=== PATIENT | male | born 1955 | race Caucasian/White ===

== ENCOUNTER 2023-06-10 00:19 | Inpatient (IN) | payer MEDICARE, MEDICAID ==
[2023-06-09 23:50] VITALS: BP 137/56; PULSE 70; TEMP 98.2
[~2023-06-10] VITALS: Ht 177.8 cm; Wt 97.4 kg
[2023-06-10] VITALS (13 sets, daily range): BP systolic 104–135; BP diastolic 52–69; PULSE 70–71; TEMP 97.5–98.2
[~2023-06-10 00:19] MED LIST: CALPHRON667 MG PO; COREG 6.256.25 MG/TA PO; DEMADEX 20MG20 M1 PO; ELIQUIS 5MG PO; KEPPRA750 MG PO; NORCO 325 MG-51 TAB PO; NORVASC 5MG5 MG/TAB PO; PREDNISONE20 MG PO; PROTONIX20 MG PO; ROBAXIN 50500 MG/TAB PO; XIFAXAN550 MG PO; ZYLOPRIM 100MG100 MG PO
[2023-06-10] MEDS ORDERED: PHOS LO PO (00:44)
[2023-06-10] MEDS ORDERED: NORVASC 10MG10 MG PO (00:44)
[2023-06-10] MEDS ORDERED: Albuterol/Ipratropium 3 MG-0.5 MG/3 ML Neb Soln IH PRN (01:45)
[2023-06-10] MEDS ORDERED: Oseltamivir 30 MG CAP PO SCH (02:00)
[2023-06-10] MEDS ORDERED: Albuterol/Ipratropium 3 MG-0.5 MG/3 ML Neb Soln IH SCH (02:00)
--- NOTE | 2023-06-10 02:25 | NUR ---
patient arrived via EMS from [facility] in [place] around 2350, alert and oriented x3 with some forgetfullness. pt denies chest pain and shortness of breath. reports some aching pain rated 7/10 in lower back, repositioned and resting with eyes closed at this time. small open wounds x3 noted on left lower leg/little, top two with bandaids applied, small amount of dried drainage noted from bottom wound, open to air, wound care consult placed. dialysis catheter in right upper cx. IV in LF is patent, site is clean dry and intact. walker from home, weak gait with ambulation. pt home medications placed in ziploc bag with pt ID sticker and in pt med bin, pt report that "med for digestion are actually in the bottle for the carvedilol, not the carvedilol" will pass on to day shift RN to send down to pharmacy. dry mild cough noted. pt unable to recognize/recall home medications, med rec completed to best of ability. pt has no further needs, questions, or concerns at this time. fall precautions in place, call light within reach. will continue to monitor.
[2023-06-10] MEDS ORDERED: Albuterol 90 MCG/PUFF 8 GM MDI IH PRN (04:30)
[2023-06-10 07:07] LABS: C-REACTIVE PROTEIN 9.51 mg/dL (0.00-0.50); MAGNESIUM 2.1 mg/dL (1.6-2.6)
[2023-06-10 07:15] LABS: CALCIUM 7.9 mg/dL (8.4-10.2); CREATININE, serum 7.4 mg/dL (0.72-1.25); POTASSIUM 4.6 mmol/L (3.5-4.5)
[2023-06-10 07:21] LABS: INR 1.3 (0.8-3.0); PROTHROMBIN TIME 14.2 SECONDS (9.7-12.8)
[2023-06-10 07:24] LABS: MEAN CELL VOLUME 89 fl (80.0-100.0); MEAN CORPUSCULAR HGB CONC 34 g/dl (33.0-37.0); MEAN PLATELET VOLUME 11.1 fl (7.4-10.4); PLATELET COUNT 60 K/mm3 (130-400); RED BLOOD COUNT 3.22 M/mm3 (4.20-5.60); REDCELL DISTRIBUTION WIDTH-CV 13.7 % (11.5-14.5)
[2023-06-10 07:30] LABS: HEMATOCRIT 28.8 % (42.0-52.0); HEMOGLOBIN 9.9 g/dl (13.5-18.0); MEAN CORPUSCULAR HEMOGLOBIN 31 pg (27-31)
--- NOTE | 2023-06-10 07:43 | NUR ---
Dr. Cardenas notified of critical lab result.
[2023-06-10] MEDS ORDERED: Calcium Acetate 667 MG TAB/CAP PO SCH (08:00)
[2023-06-10] MEDS ORDERED: Carvedilol 6.25 MG TAB PO SCH (08:00)
[2023-06-10] MEDS ORDERED: Albuterol 90 MCG/PUFF 8 GM MDI IH SCH (08:00)
[2023-06-10 08:12] LABS: LYMPHOCYTE 30 % (20.0-51.0); NEUTROPHILS 64 % (42.0-75.2); PLATELET ESTIMATE DECREASED (NORMAL)
[2023-06-10] MEDS ORDERED: amLODIPine 10 MG TAB PO SCH (09:00)
[2023-06-10] MEDS ORDERED: Apixaban 5 MG TAB PO SCH (09:00)
[2023-06-10] MEDS ORDERED: Allopurinol 100 MG TAB PO SCH (09:00)
[2023-06-10] MEDS ORDERED: Influenza Virus Vaccine, Hi-Dose Quad '23-24 (65 YR+) 0.7 ML SYRINGE IM SCH (09:00)
[2023-06-10] MEDS ORDERED: levETIRAcetam 500 MG TAB PO SCH (09:00)
[2023-06-10] MEDS ORDERED: Torsemide 20 MG TAB PO SCH (09:00)
[2023-06-10] MEDS ORDERED: Umeclidinium/Vilanterol 62.5-25 MCG INHALATION/INHALER IH SCH (09:00)
[2023-06-10] MEDS ORDERED: dexAMETHasone 10 MG/ML VIAL IV SCH (09:00)
[2023-06-10] MEDS ORDERED: Doxycycline Monohydrate 100 MG CAP PO SCH (09:00)
--- NOTE | 2023-06-10 10:23 | NUR ---
Patient awake, alert, forgetful. Denies pain or shortness of breath. States he is tired. Ulcers to lower extremities bilaterally. Open ulceration on L little, others dried and scaly, black. HD catheter in place in R chest, dressing CDI. Bed in lowest position, bed alarm on, call light within reach.
[2023-06-10 11:03] LABS: MEAN CELL VOLUME 90 fl (80.0-100.0); MEAN CORPUSCULAR HGB CONC 33 g/dl (33.0-37.0); MEAN PLATELET VOLUME 11.4 fl (7.4-10.4); PLATELET COUNT 63 K/mm3 (130-400); RED BLOOD COUNT 3.28 M/mm3 (4.20-5.60); REDCELL DISTRIBUTION WIDTH-CV 13.8 % (11.5-14.5)
[2023-06-10 11:12] LABS: HEMATOCRIT 29.6 % (42.0-52.0); HEMOGLOBIN 9.9 g/dl (13.5-18.0); MEAN CORPUSCULAR HEMOGLOBIN 30 pg (27-31)
[2023-06-10] MEDS ORDERED: oxyCODONE 5 MG TAB PO ONE (11:15)
--- NOTE | 2023-06-10 11:43 | NUR ---
Dr. Cardenas notified of critical lab result.
[2023-06-10] MEDS ORDERED: Heparin 1,000 UNITS/ML 10 ML Multi-Dose VIAL IV SCH (12:00)
[2023-06-10] MEDS ORDERED: Heparin 1,000 UNITS/ML 10 ML Multi-Dose VIAL ICA SCH (12:00)
[2023-06-10 12:18] LABS: BAND 10 % (0-10); LYMPHOCYTE 38 % (20.0-51.0); MYELOCYTE 2 % (0-0); NEUTROPHILS 46 % (42.0-75.2); PLATELET ESTIMATE DECREASED (NORMAL)
--- NOTE | 2023-06-10 12:21 | NUR ---
workers compensation claims supervisor attended clinical rounding with the interdisciplinary team. SW was notified patient may need resources on ways to make his medications more affordable. SW will follow up with patient via telephone due to patient testing positive for COVID.
[2023-06-10] MEDS ORDERED: Remdesivir 100 MG in NS 100 ML IV SCH (16:00)
--- NOTE | 2023-06-10 16:30 | NUR ---
Due to COVID protocol, Social Work student Yoana attempted to call patient's room phone, cell phone, and daughter's cell.
--- NOTE | 2023-06-10 18:05 | NUR ---
Patient back to room from dialysis. Denying pain, shortness of breath or nausea. Tolerating dinner well. Bed in lowest position with call light within reach, bed alarm on.
--- NOTE | 2023-06-10 18:11 | NUR ---
Dialysis Note Pt arrived to dialysis via bed Uf goal set for 2.5 and 2.5 removed. Pt tolerated well and dcd back to room.
[2023-06-10] MEDS ORDERED: cefTRIAXone 2 G in Water For Injection,Sterile 20 ML IV SCH (20:00)
[2023-06-10] MEDS ORDERED: oxyCODONE 5 MG TAB PO PRN (21:00)
--- NOTE | 2023-06-10 21:31 | NUR ---
patient lying in bed, alert and oriented x3 with occasional forgetfullness. pt denies chest pain and shortness of breath. reports pain in lower back rated 7/10, sonya to be given per request. IV in LF is patent, site is clean dry and intact. BLE are a purplish red, slow perfusion with multiple scabs noted on all extremities and small scabbed ulcers on LLE x3 open to air clean dry and intact. pt has no further needs questions or concerns at this time. fall precautions in place, call light within reach. will continue to monitor.
[2023-06-11] VITALS (11 sets, daily range): BP systolic 102–126; BP diastolic 60–71; PULSE 70; TEMP 97.5–98.2
[2023-06-11 10:31] LABS: GRAN # 2.8 K/mm3 (1.4-6.5); LYMPH # 0.4 K/mm3 (1.2-3.4); LYMPH % 11.7 % (20.0-51.0); MEAN CELL VOLUME 90 fl (80.0-100.0); MEAN CORPUSCULAR HGB CONC 34 g/dl (33.0-37.0); MEAN PLATELET VOLUME 11.5 fl (7.4-10.4); MONO # 0.2 K/mm3 (0.1-0.6); PLATELET COUNT 67 K/mm3 (130-400); RED BLOOD COUNT 3.14 M/mm3 (4.20-5.60); REDCELL DISTRIBUTION WIDTH-CV 13.7 % (11.5-14.5)
[2023-06-11 10:36] LABS: HEMATOCRIT 28.2 % (42.0-52.0); HEMOGLOBIN 9.6 g/dl (13.5-18.0); MEAN CORPUSCULAR HEMOGLOBIN 31 pg (27-31)
[2023-06-11 10:51] LABS: CALCIUM 8.6 mg/dL (8.4-10.2); CREATININE, serum 5.51 mg/dL (0.72-1.25); POTASSIUM 4.1 mmol/L (3.5-4.5)
--- NOTE | 2023-06-11 13:57 | NUR ---
Coach Operator spoke with patient via his cell phone (ph#[phone]) to discuss discharge planning. Patient lives alone in [place] and sees Dr. Perdomo for primary care. Patient obtains medications from the [facility] in [place] and normally picks them up himself. Patient denies any DME needs. Patient reported independence with ADLS and that he drives, however he does have a breathalyzer he has to blow into in order for his car to start. Patient gets dialysis at the [facility] in [place] on MWF. Patient does not have DPOA-HC at this time. Patient is not and has one child, Mayela (ph#[phone]). Zaria stated Mayela lives in [place]. Patient plans to return home at time of discharge. NIURKA contacted NIURKA Quintana at [facility] and faxed clinical updates. Lilian advised patient has been having issues with transportation as his breathalyzer machine sometimes doesn't work. Patient sometimes has difficulty pushing enough air through for a reading. Patient has been relying on others for rides when this happens. According to Lilian, patient lives in a trailer in his sister, Meche's (ph#[phone]) yard. Lilian advised patient described his trailer as "kind of liveable". Lilian also stated patient has history of stroke. NIURKA attempted to contact patient's sister, Meche to discuss transportation at time of discharge and left a voicemail. Discharge Plan; Home
[2023-06-11] MEDS ORDERED: Heparin 1,000 UNITS/ML 10 ML Multi-Dose VIAL IV SCH (17:00)
[2023-06-11] MEDS ORDERED: Heparin 1,000 UNITS/ML 10 ML Multi-Dose VIAL ICA SCH (17:00)
--- NOTE | 2023-06-11 22:10 | NUR ---
patient lying in bed, alert and oriented x4 with occassional forgetfulness. pt denies chest pain and reports feeling intermittent shortness of breath during exertion. report pain in lower back rated 7/10 per request sonya to be given. IV in LF is patent, and dialysis cath in right chest are clean dry and intact. LLE dressing is clean dry and intact for scabbed/open draining small wounds x3, scabs and bruising noted on extremities, BLE purplish red venous insufficiency noted. pt has no further needs, questions, or concerns at this time. fall precautions in place, call light within reach. will continue to monitor.
[2023-06-12] VITALS (12 sets, daily range): BP systolic 114–126; BP diastolic 58–72; PULSE 68–78; TEMP 97.2–97.9
--- NOTE | 2023-06-12 08:20 | NUR ---
PT LAYING IN BED UPON ENTERING. ASSESSMENT DONE, MEDS GIVEN PER ORDER. PT ORIENTED WITH FORGETFUL SPEECH NOTED DURING ASSESSMENT. PT ON 2L NASAL CANNULA. PT REPORTS BACK PAIN AND THAT HE SHOULD GET PAIN MEDS AROUND 10 AM. THIS NURSE NOTIFIED PT WHEN NEXT DOSE IS DUE AND PT VERBALIZED UNDERSTANDING. INT TO LEFT FOREARM PATENT. LEFT LOWER LOBE DIMINISHED. HD CATH TO RIGHT CHEST COVERED WITH TEGADERM AND IS CLEAN DRY INTACT. PT HAS BROWN DISCOLORATION TO BILATERAL LEGS, SKIN DRY AND FLAKING AROUND SHINS. TELFA AND GAUZE TO LEFT LOWER EXTREMITY, DRESSING IS CLEAN DRY INTACT. PT DENIES NEEDS AT THIS TIME. BED IN LOWEST POSITION, CALL LIGHT IN REACH, BED ALARM ON
[2023-06-12] MEDS ORDERED: rifAXIMin 550 MG TAB PO SCH (09:00)
[2023-06-12 09:57] LABS: MEAN CELL VOLUME 89 fl (80.0-100.0); MEAN CORPUSCULAR HGB CONC 34 g/dl (33.0-37.0); MEAN PLATELET VOLUME 11.6 fl (7.4-10.4); PLATELET COUNT 73 K/mm3 (130-400); RED BLOOD COUNT 3.08 M/mm3 (4.20-5.60); REDCELL DISTRIBUTION WIDTH-CV 13.7 % (11.5-14.5)
[2023-06-12 09:58] LABS: HEMATOCRIT 27.5 % (42.0-52.0); HEMOGLOBIN 9.4 g/dl (13.5-18.0); MEAN CORPUSCULAR HEMOGLOBIN 31 pg (27-31)
[2023-06-12 10:03] LABS: CALCIUM 8.6 mg/dL (8.4-10.2); CREATININE, serum 7.03 mg/dL (0.72-1.25); POTASSIUM 4.4 mmol/L (3.5-4.5)
[2023-06-12 10:29] LABS: LYMPHOCYTE 13 % (20.0-51.0); NEUTROPHILS 83 % (42.0-75.2)
[2023-06-12 10:30] LABS: PLATELET ESTIMATE DECREASED (NORMAL)
--- NOTE | 2023-06-12 10:30 | NUR ---
PT IN DIALYSIS
--- NOTE | 2023-06-12 13:15 | NUR ---
Dialysis Note Pt arrived to tx via bed. Uf goal set for 2.5 kg and 2.5 removed. Pt tolerated tx well. Pt dcd back to room without complaints.
--- NOTE | 2023-06-12 13:57 | NUR ---
PT BACK FROM DIAYLSIS. ON 2L NASAL CANNULA AND REPORTS IMPROVED BACK PAIN WITH MEDS. PT DENIES NEEDS. BED IN LOWEST POSITION, CALL LIGHT IN REACH, BED ALARM ON
--- NOTE | 2023-06-12 18:45 | NUR ---
NIGHT NOTIFIED OF DRESSING CHANGE STILL NEEDING TO BE DONE FOR THE DAY
--- NOTE | 2023-06-12 19:11 | NUR ---
REPORT GIVEN TO AUGUSTO METZ
[2023-06-13] VITALS (11 sets, daily range): BP systolic 100–119; BP diastolic 52–70; PULSE 69–78; TEMP 97.5–98.4
[2023-06-13 06:40] LABS: GRAN # 2.7 K/mm3 (1.4-6.5); LYMPH # 0.5 K/mm3 (1.2-3.4); MEAN CELL VOLUME 90 fl (80.0-100.0); MEAN CORPUSCULAR HGB CONC 34 g/dl (33.0-37.0); MEAN PLATELET VOLUME 11.1 fl (7.4-10.4); MONO # 0.2 K/mm3 (0.1-0.6); MONO % 5.4 % (1.7-9.3); PLATELET COUNT 75 K/mm3 (130-400); RED BLOOD COUNT 2.96 M/mm3 (4.20-5.60); REDCELL DISTRIBUTION WIDTH-CV 13.6 % (11.5-14.5)
[2023-06-13 06:55] LABS: ALBUMIN 2.8 gm/dL (3.4-4.8); BILIRUBIN,TOTAL 0.3 mg/dL (0.2-1.2); CALCIUM 8.3 mg/dL (8.4-10.2); CREATININE, serum 5.05 mg/dL (0.72-1.25); POTASSIUM 4.3 mmol/L (3.5-4.5); TOTAL PROTEIN 5.9 gm/dL (6.2-8.1)
[2023-06-13 06:58] LABS: HEMATOCRIT 26.6 % (42.0-52.0); HEMOGLOBIN 8.9 g/dl (13.5-18.0); MEAN CORPUSCULAR HEMOGLOBIN 30 pg (27-31)
--- NOTE | 2023-06-13 14:24 | NUR ---
ornamental iron worker helper was notified by RN, Violetta, that patient would discharge on Thursday after dialysis. Discharge plan: Home possibly HH
[2023-06-14] VITALS (11 sets, daily range): BP systolic 106–127; BP diastolic 55–95; PULSE 70–71; TEMP 97.4–97.6
--- NOTE | 2023-06-14 08:30 | NUR ---
PT SLEEPING IN BED UPON ENTERING, RISE AND FALL OF CHEST NOTED. ASSESSMENT DONE, MEDS GIVEN PER ORDER. PT ON ROOM AIR AND DENIES SHORTNESS OF BREATH. LEFT FOREARM INT PATENT. PT REPORTS BACK PAIN AND NOTIFIED OF NEXT TIME FOR PAIN MED, PT VERBALIZED UNDERSTANDING. RIGHT CHEST HEMODIALYSIS PORT, DRESSING CLEAN DRY AND INTACT. BILATERAL LEGS HAVE BROWN COLORED APPEARANCE WITH DRY FLAKY SKIN. DRESSING TO LEFT LOWER EXTREMITY CLEAN DRY AND INTACT. PT DENIES NEEDS. BED IN LOWEST POSITION, CALL LIGHT IN REACH, BED ALARM ON
--- NOTE | 2023-06-14 11:09 | NUR ---
TELFA, GAUZE AND REBECA WRAP DRESSING TO LEFT LOWER EXTREMITY REMOVED. 3 ULCERS NOTED TO WANG. SCANT AMOUNT RED BROWN DRAINAGE NOTED. TELFA, GAUZE AND REBECA WRAP APPLIED TO LEFT LOWER EXTREMITY. PT GIVEN PAIN MED AND DENIES NEEDS. BED IN LOWEST POSITION, CALL LIGHT IN REACH, BED ALARM ON
--- NOTE | 2023-06-14 17:52 | NUR ---
MEDS GIVEN. COREG HELD DUE TO SBP < 120 PER ORDER. PT DENIES NEEDS. BED IN LOWEST POSITION, CALL LIGHT IN REACH, BED ALARM ON
[2023-06-14] MEDS ORDERED: Heparin 1,000 UNITS/ML 10 ML Multi-Dose VIAL ICA SCH (19:00)
[2023-06-14] MEDS ORDERED: Heparin 1,000 UNITS/ML 10 ML Multi-Dose VIAL IV SCH (19:00)
[2023-06-15] VITALS (11 sets, daily range): BP systolic 111–140; BP diastolic 56–72; PULSE 70–79; TEMP 97.6–98.4
[2023-06-15 05:07] LABS: MEAN CELL VOLUME 87 fl (80.0-100.0); MEAN CORPUSCULAR HGB CONC 35 g/dl (33.0-37.0); MEAN PLATELET VOLUME 11.7 fl (7.4-10.4); PLATELET COUNT 87 K/mm3 (130-400); RED BLOOD COUNT 3.11 M/mm3 (4.20-5.60); REDCELL DISTRIBUTION WIDTH-CV 13.2 % (11.5-14.5)
[2023-06-15 05:14] LABS: HEMATOCRIT 27.1 % (42.0-52.0); HEMOGLOBIN 9.5 g/dl (13.5-18.0); MEAN CORPUSCULAR HEMOGLOBIN 31 pg (27-31)
[2023-06-15 05:41] LABS: BAND 1 % (0-10); LYMPHOCYTE 8 % (20.0-51.0); NEUTROPHILS 87 % (42.0-75.2); OVALOCYTES 1+; PLATELET ESTIMATE NORMAL (NORMAL)
[2023-06-15 07:41] LABS: CALCIUM 8.8 mg/dL (8.4-10.2); CREATININE, serum 7.47 mg/dL (0.72-1.25); MAGNESIUM 2.2 mg/dL (1.6-2.6); POTASSIUM 4.8 mmol/L (3.5-4.5)
[2023-06-15] MEDS ORDERED: INVANZ INJ1 G/VIAL IV (11:26)
[2023-06-15] MEDS ORDERED: DECADRON6 MG PO (11:27)
--- NOTE | 2023-06-15 16:17 | NUR ---
bingo worker was informed during clinical rounding that patient can discharge today with Home Health services. Dr. Cardenas spoke with IGNACIO Onofre and BRAULIO Sanchez regarding getting IV Antibiotics at [facility]. Jemima called [employer] SUPERVIS[employer] Olga at [facility]. NIURKA provided AUGUSTO Uriarte the Medicare.gov list of HH options. She informed SW that pt chose [facility] in [place]. NIURKA spoke with BRAULIO Sanchez who reports he will need PT/OT/SN. SW confirmed pt's address and was set to set up Medicaid transport as SW was informed pt could not find a ride. SW was later informed that there was an issue with insurance covering the antibiotics for 3 doses at dialysis. SW was informed that Swing Bed was mentioned. NIURKA spoke with Director Chyna, Dr. Cardenas, and BRAULIO Sanchez regarding insurance coverage and discharge planning. Chyna will conduct follow up with IGNACIO Onofre regarding insurance. NIURKA faxed a referral to [facility]. NIURKA recieved a call informing SW that it will be likely denied due to all notes stating home with HH, the OT note being from the , and she reports concerns of patient being in isolation and having dialysis when short staffed. SW was informed they also will have to get prior auth through his advantage plan. She informed SW to send better updates tomorrow, if still wanted. Discharge Plan: tbd tomorrow, on IV ABOX
--- NOTE | 2023-06-15 18:50 | NUR ---
PATIENT RESTING IN BED WITH TV ON WITH NO ACUTE DISTRESS NOTED. PATIENT ON ROOM AIR. INT TO LEFT FOREARM INTACT WITH NO COMPLICATIONS NOTED. DIALYSIS CATH INTACT WITH NO COMPLICAITONS NOTED. TELEMETRY INTACT. PATIENT DENIES ANY NEEDS. PATIENT CARE ASSUMED FROM KARY AT THIS TIME. BED IN LOW POSITION WITH WHEELS LOCKED WITH RAILS UP X3 AND CALL LIGHT WITHIN REACH.
--- NOTE | 2023-06-15 21:30 | NUR ---
PATIENT RESTING LYING ON LEFT SIDE WITH EYES CLOSED WITH TV ON WITH NO ACUTE DISTRESS NOTED. PATIENT EASILY AROUSED. PATIENT ON ROOM AIR. INT TO LEFT FOREARM INTACT WITH NO COMPLICATIONS NOTED. ASSESSMENT AND MEDICATION ADMINISTRATION COMPLETED AT THIS TIME. PATIENT TOLERATED WELL. PATIENT DENIES ANY NEEDS. BED IN LOW POSITION WITH WHEELS LOCKED WITH RAILS UP X3 AND CALL LIGHT WITHIN REACH.
[2023-06-16 00:15] VITALS: BP_SYST 123
[2023-06-16 03:55] VITALS: BP 130/75; PULSE 70; TEMP 97.6
[2023-06-16 04:00] VITALS: BP_SYST 130
[2023-06-16 07:02] LABS: MEAN CELL VOLUME 87 fl (80.0-100.0); MEAN CORPUSCULAR HGB CONC 35 g/dl (33.0-37.0); MEAN PLATELET VOLUME 11.8 fl (7.4-10.4); PLATELET COUNT 99 K/mm3 (130-400); RED BLOOD COUNT 3.18 M/mm3 (4.20-5.60); REDCELL DISTRIBUTION WIDTH-CV 13.4 % (11.5-14.5)
[2023-06-16 07:07] LABS: HEMATOCRIT 27.8 % (42.0-52.0); HEMOGLOBIN 9.7 g/dl (13.5-18.0); MEAN CORPUSCULAR HEMOGLOBIN 31 pg (27-31)
[2023-06-16 07:22] LABS: CALCIUM 8.5 mg/dL (8.4-10.2); CREATININE, serum 5.38 mg/dL (0.72-1.25)
[2023-06-16 07:25] LABS: BAND 3 % (0-10); LYMPHOCYTE 8 % (20.0-51.0); NEUTROPHILS 79 % (42.0-75.2); PLATELET ESTIMATE DECREASED (NORMAL)
[2023-06-16 07:52] VITALS: BP 126/70; PULSE 94; TEMP 97.6
[2023-06-16 09:00] VITALS: BP_SYST 126
--- NOTE | 2023-06-16 09:40 | NUR ---
Patient sleeping upon entry into room, woke up with touch and voice. Patient is alert and oriented at baseline. Shift assessment complete, no new variances noted. Tolerating food and fluids well. Denies pain or discomfort. Dressing to left lower leg CDI. Bilateral lower legs darkened and dry. Call light within reach, all needs met at this time.
--- NOTE | 2023-06-16 12:14 | NUR ---
Discharge instructions discussed with patient including follow-up appointments, new medications, dialysis schedule, and home health follow-up. Patient verbalized understanding. IV discontinued to right forearm with no complications. No telemetry present. Patient states he is going to call his ride, social work states they will assist in finding patient a ride if he cannot get one.
--- NOTE | 2023-06-16 12:54 | NUR ---
cemetery workers supervisor was informed during clinical rounding that patient can discharge home today with HH and outpatient IV antibiotics after diaylsis, at [facility] in [place]. NIURKA notes pt's choice of HH yesterday was [facility]. NIURKA faxed referral and called to ensure they recieved it. Supa asked for a note stating when pt will be out of isolation from COVID-19. NIURKA had BRAULIO Sanchez complete this and faxed it to . Supa reports they can accept pt and will call him tomorrow, to see pt on . NIURKA also faxed discharge orders along with wound care consult. NIURKA faxed clinical information and script for IV antibiotics to [facility] in [place] for OP IV antibiotics. NIURKA provided Clinical CM Jemima and Lashell information to the hospital for additional questions. NIURKA advised that patient only needs three upcoming doses of IV antibiotics (generic version.) NIURKA was set to set up transportation through patient's Medicaid, then noted that he does not have this benefit on his insurance. NIURKA called daughter, Mayela [phone] who reports she is unable to physically help as she lives in [place], [place]. Mayela reports some concerns as her father has no called her and typically calls multiple times a day. She questioned why he was in the hospital and reports if he had been drinking or withdrawling, he would not come into the hospital. NIURKA provided pt's status and discharge information, but needed assistance with transportation. NIURKA advised pt is in isolation and has had some trounle confirming information with staff such as address or how he got to the hospital. Mayela states that is not his normal. She provided she has an appointment at 12pm, but will call SW back around 1-2pm. NIURKA urged if she can call back ALFONSO after her appointment. She verbalized understanding. NIURKA was notified by AUGUSTO Romero that pt called his [id number] who reports he will milk pickup driver pt in 2.5 hours. NIURKA confirmed with RN who said pt's car is at home and this is his usual form of transportation. Discharge Plan: Home with [facility] and OP IV ABOX at [facility] after diaylsis in [place]
--- NOTE | 2023-06-16 13:47 | NUR ---
Patient escorted out by staff via wheelchair with belongings to friend's car.
== END 2023-06-16 13:48 | disposition home health service (06) | DRG 871 ==
LOC: MEDICAL 00:19
PROVIDERS: Nurse Practitioner Family; Physician Assistant; ADMIT Hospitalist
DX: A41.9 Sepsis, unspecified organism (principal); J96.01 Acute respiratory failure with hypoxia; U07.1 COVID-19; N18.6 End stage renal disease; I48.20 Chronic atrial fibrillation, unspecified; J10.1 Influenza due to other identified influenza virus with other respiratory manifestations; D70.9 Neutropenia, unspecified; Z99.2 Dependence on renal dialysis; K74.60 Unspecified cirrhosis of liver; D69.6 Thrombocytopenia, unspecified; R73.9 Hyperglycemia, unspecified; I10 Essential (primary) hypertension; Z86.718 Personal history of other venous thrombosis and embolism; I27.20 Pulmonary hypertension, unspecified; I34.0 Nonrheumatic mitral (valve) insufficiency; I73.9 Peripheral vascular disease, unspecified; G40.909 Epilepsy, unspecified, not intractable, without status epilepticus; M10.9 Gout, unspecified; Z86.73 Personal history of transient ischemic attack (TIA), and cerebral infarction without residual deficits
CPT/HCPCS: J0248; J0696; J1100; J1335; J1644; Q3014